=== PATIENT | female | born 2000 | race Two or more races ===

== ENCOUNTER 2022-11-03 14:15 | Outpatient (CLI) | payer OTHER | END 2022-11-03 15:51 | disposition home or self-care (01) | LOC: PRENATAL 14:15 | PROVIDERS: ATTEND Obstetrics & Gynecology Maternal & Fetal Medicine | DX: O35.3XX0 Maternal care for (suspected) damage to fetus from viral disease in mother, not applicable or unspecified (principal); O35.9XX0 Maternal care for (suspected) fetal abnormality and damage, unspecified, not applicable or unspecified; Z3A.21 21 weeks gestation of pregnancy ==

== ENCOUNTER 2022-12-21 20:39 | Outpatient (CLI) | payer OTHER | END 2022-12-22 10:26 | disposition home or self-care (01) | LOC: OBS/DEL 20:39 | PROVIDERS: ATTEND Obstetrics & Gynecology | DX: O47.03 False labor before 37 completed weeks of gestation, third trimester (principal); Z3A.28 28 weeks gestation of pregnancy ==

== ENCOUNTER 2023-01-19 12:36 | Inpatient (IN) | payer OTHER ==
[~2023-01-19] VITALS: Ht 154.9 cm; Wt 78.5 kg
[2023-01-19] MEDS ORDERED: ZOLOFT50 MG PO (12:40)
[2023-01-19] MEDS ORDERED: VISTARIL25 MG PO (12:40)
[2023-01-19] MEDS ORDERED: PRENA1 CHEW TA1.4 MG PO (12:41)
[2023-01-21] MEDS ORDERED: NIFEDIPINE ER30 M1 PO (09:03)
== END 2023-01-21 16:22 | disposition home or self-care (01) | DRG 833 ==
LOC: OBS/DEL 12:36 → LDR 15:48 → OBS/DEL 15:48 → OB/GYN 01-20 12:22
PROVIDERS: ADMIT Obstetrics & Gynecology; ATTEND Obstetrics & Gynecology
PROC: BY4FZZZ Ultrasonography of Third Trimester, Single Fetus (ICD-10-PCS; principal; 2023-01-19)
PROC: BU4CZZZ Ultrasonography of Uterus and Ovaries (ICD-10-PCS; 2023-01-19)
PROC: 4A1HXCZ Monitoring of Products of Conception, Cardiac Rate, External Approach (ICD-10-PCS; 2023-01-19)
DX: O60.03 Preterm labor without delivery, third trimester (principal); Z3A.32 32 weeks gestation of pregnancy; Z20.822 Contact with and (suspected) exposure to COVID-19

== ENCOUNTER 2023-03-12 06:03 | Inpatient (IN) | payer OTHER ==
[~2023-03-12] VITALS: Ht 154.9 cm; Wt 84.4 kg
[~2023-03-12 06:03] MED LIST: NIFEDIPINE ER30 M1 PO; PRENA1 CHEW TA1.4 MG PO; VISTARIL25 MG PO; ZOLOFT50 MG PO
[2023-03-12] MEDS ORDERED: AMPICILLIN SOD500 MG IM (08:07)
== END 2023-03-14 14:47 | disposition home or self-care (01) | DRG 807 ==
LOC: LDR 06:03 → OB/GYN 18:19
PROVIDERS: ADMIT Obstetrics & Gynecology; ATTEND Obstetrics & Gynecology
PROC: 10E0XZZ Delivery of Products of Conception, External Approach (ICD-10-PCS; principal; 2023-03-12)
PROC: 3E033VJ Introduction of Other Hormone into Peripheral Vein, Percutaneous Approach (ICD-10-PCS; 2023-03-12)
PROC: 3E0P7VZ Introduction of Hormone into Female Reproductive, Via Natural or Artificial Opening (ICD-10-PCS; 2023-03-12)
PROC: 4A1HXCZ Monitoring of Products of Conception, Cardiac Rate, External Approach (ICD-10-PCS; 2023-03-12)
DX: O99.824 Streptococcus B carrier state complicating childbirth (principal); Z37.0 Single live birth; Z3A.39 39 weeks gestation of pregnancy; Z20.822 Contact with and (suspected) exposure to COVID-19

== ENCOUNTER 2023-06-11 13:25 | Inpatient (IN) | payer OTHER ==
[~2023-06-11] VITALS: Ht 154.9 cm; Wt 77.1 kg
[~2023-06-11 13:25] MED LIST changes: +AMPICILLIN SOD500 MG IM
--- NOTE | 2023-06-11 14:17 | NUR ---
PTE ALERTA,ESTABLE Y ORIENTADA.ESTA REFIERE HOY EN LA MANANA COMENZO CON UN DOLOR DE ESPALDA Y [place] SE LE [place]O ASHLEY EL ABD
--- NOTE | 2023-06-11 18:09 | NUR ---
SE ORIENTA PTE SOBRE TX A SEGUIR, EL CUAL REFIERE ENTENDER. SE COLECTAN MUESTRAS UTILIZANDO MEDIDAS ASEPTICAS. SE ADM. MEDICAMENTOS LEWIS ORDEN MEDICA
[2023-06-11 18:11] LABS: HEMATOCRIT 38.5 % (36.0-45.00); HEMOGLOBIN 12.8 g/dL (12.0-15.00); MEAN CORPUSCULAR HEMOGLOBIN 27.3 pg (27.00-32.0); MEAN CORPUSCULAR HGB CONC 33.3 g/dl (32.0-36.0); PLATELET COUNT 316 K/uL (150-450)
[2023-06-11 18:23] LABS: RED CELL DISTRIBUTION WIDTH 17.4 % (11.5-14.5)
[2023-06-11 18:43] LABS: ALBUMIN 3.6 gm/dL (3.4-5.0); BILIRUBIN TOTAL 1.64 mg/dL (0.3-1.2); BILIRUBIN,CONJUGATED 0.98 mg/dL (0.0-0.2); BILIRUBIN,UNCONJUGATED 0.66 mg/dL (0.0-0.6); CALCIUM 9.2 mg/dL (8.5-10.1); CREATININE SERUM 0.7 mg/dL (0.55-1.02); GFR 106.68; GLOBULINA 4.3 G/DL (2.4-3.5); POTASSIUM 4.67 mEq/L (3.5-5.1); TOTAL PROTEIN 7.9 gm/dL (6.4-8.2)
[2023-06-12 00:56] LABS: PARTIAL THROMBOPLASTIN TIME 28.6 SECONDS (22.0-34.0); PROTHROMBIN TIME 10.5 SECONDS (9.0-11.5)
[2023-06-12 07:24] LABS: ALBUMIN 3.3 gm/dL (3.4-5.0); BILIRUBIN TOTAL 1.82 mg/dL (0.3-1.2); BILIRUBIN,CONJUGATED 1.04 mg/dL (0.0-0.2); BILIRUBIN,UNCONJUGATED 0.78 mg/dL (0.0-0.6); TOTAL PROTEIN 6.7 gm/dL (6.4-8.2)
[2023-06-12 11:45] LABS: URINE APPEARANCE Cloudy; URINE BILIRRUBIN Small (NEGATIVE); URINE BLOOD Negative; URINE COLOR Dark Yellow; URINE GLUCOSE Negative (NEGATIVE); URINE LEUKOCYTE Moderate; URINE NITRATE Negative; URINE PROTEIN Negative (NEGATIVE)
[2023-06-12 11:52] LABS: URINE BACTERIA 7969.1 uL (0.0-1933); URINE EPITHELIAL CELLS 128.9 uL (0.0-38.8); URINE RBC 19.1 uL (0.0-20.8); URINE WBC 100.6 uL (0.0-23.2)
[2023-06-14 07:10] LABS: hav igm Negative (Negative); hcv Non Reactive (Non Reactive); hep b c Negative (Negative)
== END 2023-06-13 19:06 | disposition home or self-care (01) | DRG 446 ==
LOC: ER 13:26 → MEDJ 20:35
PROVIDERS: General Practice; Internal Medicine Infectious Disease; ADMIT Internal Medicine; ATTEND Internal Medicine
PROC: BF37ZZZ Magnetic Resonance Imaging (MRI) of Pancreas (ICD-10-PCS; principal; 2023-06-11)
DX: K80.20 Calculus of gallbladder without cholecystitis without obstruction (principal); K52.89 Other specified noninfective gastroenteritis and colitis; Z20.822 Contact with and (suspected) exposure to COVID-19

== ENCOUNTER 2023-06-25 06:56 | Day surgery (SDC) | payer OTHER ==
[2023-06-19 13:17] LABS: HEMATOCRIT 38.3 % (36.0-45.00); HEMOGLOBIN 12.7 g/dL (12.0-15.00); MEAN CELL VOLUME 81.8 fL (80.00-100.00); MEAN CORPUSCULAR HEMOGLOBIN 27.2 pg (27.00-32.0); MEAN CORPUSCULAR HGB CONC 33.2 g/dl (32.0-36.0); PH,URINE 5.5 (5.0-8.0); PLATELET COUNT 308 K/uL (150-450); RED BLOOD COUNT 4.68 M/uL (4.00-6.00); URINE APPEARANCE Clear; URINE BILIRRUBIN Negative (NEGATIVE); URINE BLOOD NHT; URINE COLOR Yellow; URINE GLUCOSE Negative (NEGATIVE); URINE LEUKOCYTE Negative; URINE NITRATE Negative; URINE PROTEIN Negative (NEGATIVE); URINE UROBILINOGEN 0.2 E.U./dl
[2023-06-19 13:22] LABS: URINE BACTERIA 30.2 uL (0.0-1933); URINE EPITHELIAL CELLS 4.4 uL (0.0-38.8); URINE RBC 20.1 uL (0.0-20.8); URINE WBC 2.4 uL (0.0-23.2)
[2023-06-19 13:36] LABS: INR 1.04; PARTIAL THROMBOPLASTIN TIME 32.8 SECONDS (22.0-34.0); PROTHROMBIN TIME 10.9 SECONDS (9.0-11.5)
[2023-06-19 13:46] LABS: ALBUMIN 3.9 gm/dL (3.4-5.0); BILIRUBIN TOTAL 0.71 mg/dL (0.3-1.2); CALCIUM 9.2 mg/dL (8.5-10.1); CREATININE SERUM 0.53 mg/dL (0.55-1.02); GFR 147.07; GLOBULINA 3.9 G/DL (2.4-3.5); POTASSIUM 4.6 mEq/L (3.5-5.1); TOTAL PROTEIN 7.8 gm/dL (6.4-8.2)
== END 2023-06-25 17:25 | disposition home or self-care (01) ==
LOC: CIR.AMB 06:56
PROVIDERS: ATTEND Surgery
DX: K80.10 Calculus of gallbladder with chronic cholecystitis without obstruction (principal); R59.0 Localized enlarged lymph nodes; F41.9 Anxiety disorder, unspecified; Z20.822 Contact with and (suspected) exposure to COVID-19